=== PATIENT | male | born 1960 | race African-American/Black ===

== ENCOUNTER 2017-01-07 09:45 | Emergency (ER) | payer OTHER ==
[~2017-01-07] VITALS: Ht 175.3 cm; Wt 95.5 kg
[~2017-01-07 09:45] MED LIST: AMLO10 PO; CYCL-36 PO; DICL50 PO; FAMO1TAB36 PO
[2017-01-07 09:46] VITALS: BP 142/98; PULSE 76; RESP 20; TEMP 98.7; O2SAT 97
[2017-01-07] MEDS ORDERED: AMLO10 PO (09:55)
[2017-01-07] MEDS ORDERED: IBUP800T23 PO (10:24)
--- NOTE | 2017-01-07 10:24 | PD ---
HPI Chief Complaint: Pain: Acute or Chronic Time Seen by Provider: 10:23 Travel History International Travel<30 days: No Contact w/Intl Traveler<30days: No Traveled to known affect area: No History of Present Illness HPI 56-year-old male presents to emergency department complaint of right knee pain and swelling for the last 3-4 days. Denies injury. Says he did follow-up with his primary care provider last month, apparently with the same complaint, because she told him she recommended to get x-rays of his right knee which he has not done. Denies paresthesias, loss of sensation, decreased range of motion , decreased strength to the affected extremity. Denies fever, chills, nausea, vomiting. Has been taking ibuprofen with minimal relief of pain. Has not tried any other treatments for medications to the patient's symptoms. Pain is to the anterior aspect. Pain is aggravated with movement and walking. Has no other medical complaints. Allergies to lisinopril. No other modifying factors or associated signs and symptoms. PFSH Past Medical History Hypertension: Yes Tetanus Vaccination: < 5 Years Past Surgical History Surgical History: No Previous Surgery Social History Alcohol Use: Yes (@ 4PK PER DAY) Tobacco Use: No Substance Use: No Allergies-Medications (Allergen,Severity, Reaction): Coded Allergies: Lisinopril (Verified Allergy, Severe, Nausea/Vomiting, 01/07/17) swollen lips. Reported Meds & Prescriptions Reported Meds & Active Scripts Active Ibuprofen 800 Mg Tab 800 Mg PO Q6HR PRN Reported Norvasc (Amlodipine Besylate) 10 Mg Tab 10 Mg PO DAILY Review of Systems Except as stated in HPI: all other systems reviewed are Neg Physical Exam Narrative GENERAL: Well-nourished, well-developed male patient, in no acute distress; afebrile, nontoxic-appearing SKIN: Warm and dry. HEAD: Atraumatic. Normocephalic. EYES: Pupils equal and round. No scleral icterus. No injection or drainage. ENT: Mucosa pink and moist. Airway patent. NECK: Trachea midline. CARDIOVASCULAR: Regular rate. RESPIRATORY: No accessory muscle use. GASTROINTESTINAL: Rounded. MUSCULOSKELETAL: Right knee is nonedematous, nonerythematous, non-ecchymotic; without warmth to touch; with full range of motion and flexion to 90; joint stable with negative drawer test; point tenderness to the anterior aspect just below the patella. Right lower extremity is supple and non-tense with 2+ pedal pulses and sensory intact and without erythema or edema. No obvious deformity. No edema. NEUROLOGICAL: Awake and alert. Oriented 3. No obvious cranial nerve deficits. Motor grossly within normal limits. Normal speech. PSYCHIATRIC: Appropriate mood and affect; insight and judgment normal. Data Data Last Documented VS Vital Signs Date Time Temp Pulse Resp B/P Pulse Ox O2 Delivery O2 Flow Rate FiO2 01/07/17 09:46 98.7 76 20 142/98 97 Room Air Orders Crutches (01/07/17 10:24) MDM Medical Decision Making Medical Screen Exam Complete: Yes Emergency Medical Condition: Yes Medical Record Reviewed: Yes Differential Diagnosis Arthritis, bursitis, knee strain Narrative Course 56-year-old male with right knee pain. Denies injury. The right knee does not appear edematous compared to the left. The knee is with full range of motion and flexion to 90 and the joint stable. I do not suspect fracture dislocation of the imaging is not necessary at this time. Patient provided with crutches for support. Ibuprofen prescribed for home. Instructed patient to follow up with primary care provider. Patient verbalizes understanding and agreement with treatment plan. Patient is medically cleared and stable for discharge. Discussed reasons to return to the emergency department. Patient agrees with treatment plan. The patients vital signs are stable and the patient is stable for outpatient follow-up and treatment. Patient discharged home, stable and in no acute distress. Diagnosis Primary Impression: Right knee pain Qualified Code: M25.561 - Right knee pain, unspecified chronicity Referrals: Primary Care Physician Patient Instructions: Crutch Instructions (ED), General Instructions, Knee Pain (ED) Departure Forms: Tests/Procedures, Work Release Enter return to work date: Jan 10, 2017 Additional Instructions: Tylenol or ibuprofen as needed and as directed to reduce pain and inflammation Rest, ice, compress, and elevate extremity to decrease pain and inflammation Knee Brace for support Crutches for support Avoid aggravating activity; increase activity as tolerated Follow-up with primary care provider Return to the emergency department immediately with worsening symptoms Med/Other Pt SpecificInfo: Prescription(s) given Scripts Ibuprofen 800 Mg Exo163 Mg PO Q6HR PRN (PAIN) #30 TAB Ref 0 Prov:Palmira Valverde 01/07/17 Disposition: 01 DISCHARGE HOME Condition: Stable Palmira Valverde Jan 07, 2017 10:24
== END 2017-01-07 10:34 | disposition home or self-care (01) ==
LOC: NEPK 09:45
DX: M25.561 Pain in right knee (principal); I10 Essential (primary) hypertension; F10.10 Alcohol abuse, uncomplicated
CPT/HCPCS: 99283; E0113

== ENCOUNTER 2017-03-28 01:26 | Emergency (ER) | payer OTHER ==
[~2017-03-28] VITALS: Ht 177.8 cm; Wt 84.0 kg
[~2017-03-28 01:26] MED LIST changes: -CYCL-36 PO; -DICL50 PO; -FAMO1TAB36 PO; +IBUP800T23 PO
[2017-03-28 01:27] VITALS: BP 191/93; PULSE 65; RESP 16; TEMP 98.4; O2SAT 100
[2017-03-28] MEDS ORDERED: ACETAMINOPHEN 500 MG CPLT PO ONE (02:45)
--- NOTE | 2017-03-28 02:45 | PD ---
HPI Chief Complaint: Eye Problems/Injury Time Seen by Provider: 02:29 Travel History International Travel<30 days: No Contact w/Intl Traveler<30days: No Traveled to known affect area: No History of Present Illness HPI 57-year-old black male presents to emergency department with complains of right redness and eye pain. The patient states that he's been having pain and redness is in his right eye now for the past 7-10 days. The patient does not work glasses or contacts. He had no trauma. The patient states that it started off with some mild eye irritation which she started using over-the- counter eyedrops. Over last several days it has become increasingly painful, slight amount of tearing and discharge, mild photophobia and blurred vision. He denies any direct trauma. No recent illness. No itching or diplopia. PFSH Past Medical History Narrative Medical Hypertension, hypercholesterolemia . Cardiovascular Problems: Yes Hypertension: Yes Immunizations Current: No (STATES HE DIDNT GET THOSE) Tetanus Vaccination: < 5 Years Past Surgical History Surgical History: No Previous Surgery Social History Alcohol Use: Yes (@ 4PK PER DAY) Tobacco Use: No Substance Use: Yes (MARIJUANA) Allergies-Medications (Allergen,Severity, Reaction): Coded Allergies: Lisinopril (Verified Allergy, Severe, Nausea/Vomiting, 03/28/17) swollen lips. Reported Meds & Prescriptions Reported Meds & Active Scripts Active Ibuprofen 800 Mg Tab 800 Mg PO Q6HR PRN Reported Norvasc (Amlodipine Besylate) 10 Mg Tab 10 Mg PO DAILY Review of Systems Except as stated in HPI: all other systems reviewed are Neg Eyes: Positive: Blurred Vision, Photophobia, Drainage, Redness, Pain, Tearing, Visual changes, No: Diploplia, Foreign Body Sensation Physical Exam Narrative GENERAL: This is a well-nourished, well-developed patient, in no apparent distress. SKIN: No rashes, ecchymoses or lesions. Warm and dry. HEAD: Atraumatic. Normocephalic. EYES: PERRL, EOMI, no discharge or injection in the left eye. No scleral icterus. The right eye is injected and tearing. No mucoid drainage. Lids are flipped and no foreign body seen. Ophthaine is instilled in both eyes. Fluorescein stain is negative for corneal abrasion. Patient has edema of the sclera on the right eye. Ocular pressure in the right eye is 37 and ocular pressure in the left eye is 28. Visual acuity in the right eye is 20/70 and visual acuity in the left eye is 20/30. Pupils are sluggish to react. They're about 4 mm each. The cornea/anterior chamber is not overtly cloudy. Patient does not have any significant photophobia. EARS: Clear NOSE: Nasal turbinates appear normal. THROAT: Mucosa pink and moist. Airway patent. NECK: Trachea midline. supple, moves head freely. LUNGS: Clear to auscultation. CV: Regular in rhythm. ABDOMEN: Soft nontender. EXT: No clubbing cyanosis or edema. Data Data Last Documented VS Vital Signs Date Time Temp Pulse Resp B/P Pulse Ox O2 Delivery O2 Flow Rate FiO2 03/28/17 01:27 98.4 65 16 191/93 100 Room Air MDM Medical Decision Making Medical Screen Exam Complete: Yes Emergency Medical Condition: Yes Medical Record Reviewed: Yes Differential Diagnosis MDM: High Differential diagnoses: Acute conjunctivitis (bacterial, viral, allergic, traumatic), glaucoma, iritis Narrative Course I discussed the case with Dr. Cameron who has agreed to see the patient in the morning. He would like the patient to call at 7:30 in the morning. I have discussed the patient's treatment plan of follow-up. Patient agrees to follow-up with Dr. Cameron is 7:30 in the morning. We will give him Tylenol for his headache. This is right eye pain, cephalgia rule out glaucoma Diagnosis Primary Impression: Acute right eye pain Referrals: Tacos Snell MD 1 day Patient Instructions: General Instructions Additional Instructions: Rest. Follow-up with Dr. Cameron this morning. Call his office at 7:30 in the morning. [phone] Med/Other Pt SpecificInfo: No Meds Exist/No RX given Disposition: 01 DISCHARGE HOME Condition: Stable Kt Castillo Mar 28, 2017 02:45
== END 2017-03-28 03:13 | disposition home or self-care (01) ==
LOC: NEPD 01:26
DX: H57.11 Ocular pain, right eye (principal)
CPT/HCPCS: 99283